=== PATIENT | female | born 1960 ===

== ENCOUNTER 2022-10-10 08:00 | Outpatient (AMB) | payer BC, SELFPAY ==
--- NOTE | 2022-10-10 08:03 | MHC.OFFVIS ---
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 It started about 6 months ago and was infrequent initially. Now it is more frequent and it usually when she is using her hand like typing.when she puts her hand down it improves. no numbness or weakness. No neck pain No weakness. she also has sleep problems when she was working 5am . Now it is better with regular work hours. [facility] Medical History (Updated 10/10/22 @ 08:40 by Haydee Maza MD) Anxiety Aortic stenosis HTN (hypertension) Paresthesia Sleep disorder Vitamin D deficiency Surgical History History of endometrial ablation Family History (Updated 10/10/22 @ 08:08 by Miranda Burt CMA) Mother Uterine cancer Breast cancer Father Myocardial infarction Family/Other H/O liver cancer Social History Alcohol intake: current Patient Tobacco Use Status: Never used Tobacco Review of Systems Const Reports daytime sleepiness, Reports difficulty sleeping and Reports snoring Eyes Reports blurry vision Resp Reports snoring Musc Reports numbness Neuro Reports numbness and Reports paresthesias Psych Reports anxiety Physical Exam Vital Signs: Last Vital Signs Pulse 69 10/10/22 08:08 BP 138/78 10/10/22 08:08 Pulse Ox 99 10/10/22 08:08 Oxygen Delivery Method Room Air 10/10/22 08:08 BMI result Body Mass Index 32.7 Const General: cooperative, healthy appearing, comfortable and no acute distress Nutritional Appearance: overweight Orientation/consciousness: patient oriented x3 Eyes Pupils: Equal, round and reactive pupils present Neuro Other: tingling in her right fingertips and hand when she raises her hand above shoulders, resolves when she brings it down General: patient oriented x3, tone normal and moves all extremities Cranial nerves: Yes Facial sensation intact/muscles of mastication intact, Yes Equal, round and reactive pupils present, Yes Bilaterally intact EOM present, Yes Nystagmus not present, Yes Normal facial strength present, Yes Midline tongue present and Yes Symmetric palate elevation present Cognition (Neuro): normal cognition Gait exam (Neuro): Normal gait present Motor exam (neuro): 5/5 motor strength present throughout and Normal motor muscle tone present throughout Deep tendon reflexes (DTR's): Right triceps reflex intensity grade: 2+, Left triceps reflex intensity grade: 2+, Rt Biceps (C5, C6): 2+, Left biceps reflex intensity grade: 2+, Right brachioradialis reflex intensity grade: 2+, Left brachioradialis reflex intensity grade: 2+, Right patellar reflex intensity grade: 2+ and Left patellar reflex intensity grade: 2+ Coordination: [id number] test normal Assessment & Plan Assessment & Plan (1) Paresthesia: Comment: ? carpal tunnel ? neurogenic thoracic outlet Code(s): R20.2 - Paresthesia of skin (2) Sleep disorder: Comment: snoring frequent arousals Code(s): G47.9 - Sleep disorder, unspecified Plan EMG NCS right UE Wrist splint PT for right shoulder Home sleep test to r/o sleep apnea Orders: Orders PT Evaluation and Treatment Today R20.2 - Paresthesia of skin RT home sleep study Today G47.10 - Hypersomnia, unspecified, G47.9 - Sleep disorder, unspecified NE electromyogram (EMG) Today R20.2 - Paresthesia of skin Medications: New [wrist brace] As directed 1 ea 0RF Coding Level of Care Code New Pt Level 4 (79286) Diagnoses Paresthesia R20.2 Sleep disorder G47.9
[2022-10-10 08:08] VITALS: BP 138/78; PULSE 69; O2SAT 99; BMI 32.7
== END 2022-10-10 08:35 | disposition home or self-care (01) ==
PROVIDERS: PCP Internal Medicine; Visit Provider Psychiatry & Neurology Neurology
DX: R20.2 Paresthesia of skin (principal); G47.9 Sleep disorder, unspecified
CPT/HCPCS: 99204

== ENCOUNTER → 2022-10-10 08:00 | Outpatient (BNVA) | payer BC, SELFPAY | PROVIDERS: PCP Internal Medicine; Visit Provider Psychiatry & Neurology Neurology ==

== ENCOUNTER 2022-11-25 09:16 | Outpatient (REF) | payer BC, SELFPAY ==
--- NOTE | 2022-11-25 09:19 | EMG_ITS ---
Chief complaint: Bilateral hand numbness Reason for referral: Evaluate for Carpal Tunnel Syndrome Referred by: Dr. Maza Procedure done: Bilateral upper extremities NCS/EMG Precautions and/or limitations: None The limb temperature was monitored continuously and remained between 32-36 degrees C during the performance of the NCS. Nerve Conduction Studies Anti Sensory Summary Table ?Stim Site NR Onset (ms) Norm Onset (ms) Peak (ms) Norm Peak (ms) O-P Amp (?V) Norm O-P Amp Site1 Site2 Delta-0 (ms) Dist (cm) Josh (m/s) Norm Josh (m/s) Left Median Anti Sensory (2nd Digit) Wrist ? 3.1 4.1 <3.6 28.2 >10 Wrist 2nd Digit 3.1 14.0 45 Right Median Anti Sensory (2nd Digit) Wrist ? 3.8 4.8 <3.6 42.8 >10 Wrist 2nd Digit 3.8 14.0 37 Left Ulnar Anti Sensory (5th Digit) Wrist ? 2.8 3.7 <3.7 55.0 >15.0 Wrist 5th Digit 2.8 14.0 50 Right Ulnar Anti Sensory (5th Digit) Wrist ? 2.8 3.4 <3.7 46.7 >15.0 Wrist 5th Digit 2.8 14.0 50 Motor Summary Table ?Stim Site NR Onset (ms) Norm Onset (ms) O-P Amp (mV) Norm O-P Amp iAmp (mV) Amp (1st) (%) Site1 Site2 Delta-0 (ms) Dist (cm) Josh (m/s) Norm Josh (m/s) Left Median Motor (Abd Poll Brev) Wrist ? 4.3 <3.9 4.2 >4.5 5.2 100.0 Elbow Wrist 3.3 18.0 55 >45 Elbow ? 7.6 4.3 5.2 102.4 Right Median Motor (Abd Poll Brev) Wrist ? 4.9 <3.9 8.8 >4.5 9.7 100.0 Elbow Wrist 3.7 18.5 50 >45 Elbow ? 8.6 9.3 10.2 105.7 Left Ulnar Motor (Abd Dig Minimi) Wrist ? 2.9 <3.0 9.3 >5 11.0 100.0 B Elbow Wrist 3.0 17.0 57 >45 B Elbow ? 5.9 9.3 11.0 100.0 A Elbow B Elbow 1.4 10.0 71 >45 A Elbow ? 7.3 8.0 9.6 86.0 Right Ulnar Motor (Abd Dig Minimi) Wrist ? 3.0 <3.0 8.9 >5 10.5 100.0 B Elbow Wrist 2.9 17.5 60 >45 B Elbow ? 5.9 9.0 10.5 101.1 A Elbow B Elbow 1.2 10.0 83 >45 A Elbow ? 7.1 9.4 10.9 105.6 Comparison Summary Table ?Stim Site NR Peak (ms) Norm Peak (ms) P-T Amp (?V) Site1 Site2 Delta-P (ms) Norm Delta (ms) Left Median/Radial Dig I Comparison (Digit 1 - 10cm) Median ? 3.2 <2.9 55.8 Median Radial 0.7 Radial ? 2.5 <2.8 33.0 EMG ?Side Muscle Nerve Root Ins Act Fibs Psw Amp Dur Poly Recrt Int Pat Comment Right 1stDorInt Ulnar C8-T1 Nml Nml Nml Nml Nml 0 Nml Complete Right FlexCarRad Median C6-7 Nml Nml Nml Nml Nml 0 Nml Complete Right Biceps Musculocut C5-6 Nml Nml Nml Nml Nml 0 Nml Complete Right Triceps Radial C6-7-8 Nml Nml Nml Nml Nml 0 Nml Complete Right Deltoid Axillary C5-6 Nml Nml Nml Nml Nml 0 Nml Complete Left 1stDorInt Ulnar C8-T1 Nml Nml Nml Nml Nml 0 Nml Complete Left FlexCarRad Median C6-7 Nml Nml Nml Nml Nml 0 Nml Complete Left Biceps Musculocut C5-6 Nml Nml Nml Nml Nml 0 Nml Complete Left Triceps Radial C6-7-8 Nml Nml Nml Nml Nml 0 Nml Complete Left Deltoid Axillary C5-6 Nml Nml Nml Nml Nml 0 Nml Complete FINDINGS: Right median motor nerve showed prolonged distal latency, normal amplitude and normal conduction velocity. Left median motor nerve showed prolonged distal latency, small amplitude and normal conduction velocity. Bilateral median sensory nerves showed prolonged peak latency. Interlatency difference between left median and radial sensory nerves was prolonged. All other nerves tested were within normal. Concentric needle EMG was performed in selected muscles of the bilateral upper extremities. Study did not reveal signs of electric abnormalities as shown in the table below. IMPRESSION: 1. This is an abnormal study. 2. There is electrodiagnostic evidence for bilateral moderate-severe median neuropathy at the wrists, consistent with carpal tunnel syndrome. 3. There is no electrodiagnostic evidence for ulnar neuropathy, brachial plexopathy, or cervical radiculopathy. Thank you for your kind referral. Sonal Miranda MD, LACY Board Certified, [place] Board [employer] and Rehabilitation (ABPMR) Board Certified, [place] Board of Electrodiagnostic Medicine (ABEM) CODIN [id number] x 2 MTDD
== END 2022-11-25 09:17 | disposition home or self-care (01) ==
LOC: HO.NEURO 09:16
PROVIDERS: PCP Internal Medicine; Visit Provider Psychiatry & Neurology Neurology
DX: R20.2 Paresthesia of skin (principal)
CPT/HCPCS: 95886; 95911

== ENCOUNTER → 2022-11-25 09:19 | Outpatient (BNV) | payer BC, SELFPAY | PROVIDERS: PCP Internal Medicine; Visit Provider Physical Medicine & Rehabilitation | DX: G56.13 Other lesions of median nerve, bilateral upper limbs (principal); G56.03 Carpal tunnel syndrome, bilateral upper limbs | CPT/HCPCS: 95886; 95911 ==

== ENCOUNTER → 2022-12-12 09:03 | Outpatient (REF) | payer BC, SELFPAY | LOC: HO.SL 09:03 | PROVIDERS: PCP Internal Medicine; Visit Provider Psychiatry & Neurology Neurology | DX: G47.9 Sleep disorder, unspecified (principal); G47.10 Hypersomnia, unspecified; R68.3 Clubbing of fingers | CPT/HCPCS: 95806 ==

== ENCOUNTER → 2022-12-12 09:21 | Outpatient (BNV) | payer BC, SELFPAY | PROVIDERS: PCP Internal Medicine; Visit Provider Internal Medicine | DX: R06.83 Snoring (principal) | CPT/HCPCS: 95806 ==

== ENCOUNTER 2023-03-23 07:55 | Outpatient (AMB) | payer BC, SELFPAY ==
--- NOTE | 2023-03-23 07:46 | MHC.OFFVIS ---
Intake Vital Signs 03/23/23 07:47 Height 5 ft 1 in BP 128/78 Blood Pressure Location Rt brachial Position Sitting Pulse 63 Pulse Source Pulse Oximeter Pulse Oximetry (%) 98 Oxygen Delivery Method Room Air Intake Visit Reasons: 2m f/u Paresthesias - LVM Intake Note: im here for 2 month follow up. Allergies mayonnaise Allergy (Verified 03/23/23 07:46) swelling of tounge Medication List - Last Reconciled 03/23/23 by Haydee Maza MD amlodipine 2.5 mg PO DAILY spironolactone 50 mg PO DAILY [wrist brace As directed] HPI HPI Comments History of Present Illness Details 63y/o female comes for follow up. Her EMG was c/w bilateral severe median neuropathy ( carpal tunnel syndrome ) She could not do PT or use wrist splints consistently Her home sleep test was inconclusive. she has on and off numbness and tingling in both her hands R>L.. No neck pain No weakness. she also has sleep problems when she was working 5am . Now it is better with regular work hours. [facility] TO [facility] Medical History (Updated 03/23/23 @ 07:58 by Haydee Mzaa MD) Carpal tunnel syndrome on both sides Paresthesia Vitamin D deficiency Aortic stenosis Anxiety Sleep disorder HTN (hypertension) Surgical History History of endometrial ablation Family History Mother Uterine cancer Breast cancer Father Myocardial infarction Family/Other H/O liver cancer Social History Alcohol intake: current Patient Tobacco Use Status: Never used Tobacco Physical Exam Vital Signs: Last Vital Signs Pulse 63 03/23/23 07:47 BP 128/78 03/23/23 07:47 Pulse Ox 98 03/23/23 07:47 Oxygen Delivery Method Room Air 03/23/23 07:47 Const General: cooperative, healthy appearing, comfortable and no acute distress Nutritional Appearance: overweight Orientation/consciousness: patient oriented x3 Eyes Pupils: Equal, round and reactive pupils present Neuro Other: tingling in her right fingertips and hand when she raises her hand above shoulders, resolves when she brings it down General: patient oriented x3, tone normal and moves all extremities Cranial nerves: Yes Facial sensation intact/muscles of mastication intact, Yes Equal, round and reactive pupils present, Yes Bilaterally intact EOM present, Yes Nystagmus not present, Yes Normal facial strength present, Yes Midline tongue present and Yes Symmetric palate elevation present Cognition (Neuro): normal cognition Gait exam (Neuro): Normal gait present Motor exam (neuro): 5/5 motor strength present throughout and Normal motor muscle tone present throughout Deep tendon reflexes (DTR's): Right triceps reflex intensity grade: 2+, Left triceps reflex intensity grade: 2+, Rt Biceps (C5, C6): 2+, Left biceps reflex intensity grade: 2+, Right brachioradialis reflex intensity grade: 2+, Left brachioradialis reflex intensity grade: 2+, Right patellar reflex intensity grade: 2+ and Left patellar reflex intensity grade: 2+ Coordination: [id number] test normal Assessment & Plan Assessment & Plan (1) Carpal tunnel syndrome on both sides: Code(s): G56.03 - Carpal tunnel syndrome, bilateral upper limbs Plan EMG NCS - results discussed Use Wrist splint I will refer her to hand surgery for carpal tunnel release . Home sleep test results discussed. If her sleep complaints worsen will consider in lab sleep study Orders: Referrals Hand Surgery Referral G56.03 - Carpal tunnel syndrome, bilateral upper limbs Coding Level of Care Code Est Pt Level 4 (28447) Diagnoses Carpal tunnel syndrome on both sides G56.03
[2023-03-23 07:47] VITALS: BP 128/78; PULSE 63; O2SAT 98
== END 2023-03-23 08:03 | disposition home or self-care (01) ==
LOC: HO.HSMS 07:55
PROVIDERS: PCP Internal Medicine; Visit Provider Psychiatry & Neurology Neurology
DX: G56.03 Carpal tunnel syndrome, bilateral upper limbs (principal)
CPT/HCPCS: 99214

== ENCOUNTER → 2023-03-23 07:55 | Outpatient (BNVA) | payer BC, SELFPAY | PROVIDERS: PCP Internal Medicine; Visit Provider Psychiatry & Neurology Neurology | DX: R20.2 Paresthesia of skin (principal) ==

== ENCOUNTER 2024-07-23 14:14 | Outpatient (AMB) | payer OTHER, SELFPAY ==
--- NOTE | 2024-07-23 14:19 | MHC.OFFVIS ---
Vital Signs 07/23/24 14:21 Weight 154 lb BP 150/80 H Blood Pressure Location Rt brachial Pulse 68 Pulse Source Pulse Oximeter Pulse Oximetry (%) 97 Oxygen Delivery Method Room Air Intake Visit Reasons: Follow up Procedures Nurse Required: No Accompanied by: Self / Same As Patient Allergies mayonnaise Allergy (Verified 07/23/24 14:22) swelling of tounge Medication List - Last Reconciled 07/23/24 by NARCISA Dey amlodipine 2.5 mg PO DAILY spironolactone 50 mg PO DAILY [wrist brace As directed] HPI Comments Details: 64 y/o female comes for follow up of bilateral carpal tunnel syndrome and sleep difficulties. Since the last visit, pt underwent Christian carpal tunnel repair in June [address] Jacobs at [facility]. She does not feel the carpal tunnel repair was helpful. Continues to have Christian R > L hand numbness, tingling, discomfort- less so than before the CTR but persists. She also notices right 4th finger- becomes stuck, prone to popping and discomfort when she forces it to extend. Denies neck, shoulder, or elbow pain. She did do hand PT x's 1 month and then consistently did the exercises 2 months. Uses wrist splints at times when the pain is worse. Does not take any meds for this. 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 11/25/2022, EMG was c/w bilateral severe median neuropathy ( carpal tunnel syndrome ) Previous home sleep test was inconclusive. [facility] Medical History (Updated 03/23/23 @ 07:58 by Haydee Maza MD) Carpal tunnel syndrome on both sides Paresthesia Vitamin D deficiency Aortic stenosis Anxiety Sleep disorder HTN (hypertension) Surgical History History of endometrial ablation Family History Mother Uterine cancer Breast cancer Father Myocardial infarction Family/Other H/O liver cancer Social History Alcohol intake: current Patient Tobacco Use Status: Never used Tobacco Physical Exam Vital Signs: Last Vital Signs Pulse 68 07/23/24 14:21 BP 150/80 H 07/23/24 14:21 Pulse Ox 97 07/23/24 14:21 Oxygen Delivery Method Room Air 07/23/24 14:21 Const General: cooperative, healthy appearing, comfortable and no acute distress Nutritional Appearance: overweight Orientation/consciousness: patient oriented x3 Eyes Pupils: Equal, round and reactive pupils present Neuro Other: RUE negative tinnel, phalen, medial compression test. LUE positive phalen- discomfort elicited along ulnar distribution. LUE negative tinnel, medial compression test. General: patient oriented x3, tone normal and moves all extremities Cranial nerves: Yes Facial sensation intact/muscles of mastication intact, Yes Equal, round and reactive pupils present, Yes Bilaterally intact EOM present, Yes Nystagmus not present, Yes Normal facial strength present, Yes Midline tongue present and Yes Symmetric palate elevation present Cognition (Neuro): normal cognition Gait exam (Neuro): Normal gait present Motor exam (neuro): 5/5 motor strength present throughout and Normal motor muscle tone present throughout Deep tendon reflexes (DTR's): Right triceps reflex intensity grade: 2+, Left triceps reflex intensity grade: 2+, Rt Biceps (C5, C6): 2+, Left biceps reflex intensity grade: 2+, Right brachioradialis reflex intensity grade: 2+, Left brachioradialis reflex intensity grade: 2+, Right patellar reflex intensity grade: 1+ and Left patellar reflex intensity grade: 1+ Assessment & Plan Assessment & Plan (1) Carpal tunnel syndrome on both sides: Code(s): G56.03 - Carpal tunnel syndrome, bilateral upper limbs Category: Medical Plan Pt is s/p bilateral carpal tunnel repair. Her symptoms have improved, but continues to residual symptoms. Try to use Wrist splint nightly at bedtime more consistently. Trial OTC Nervive nerve relief- advised usually takes 6-8 weeks to see full effect. If above ineffective, consider referral to OT/hand clinic. If right 4th finger locking worsens, consider referral back to Dr Reynaldo dorado. Home sleep test was inconclusive. If her sleep complaints worsen will consider in lab sleep study. Pt to follow-up in 6 months or sooner prn. Coding Level of Care Code Est Pt Level 3 (17351) Diagnoses Carpal tunnel syndrome on both sides G56.03
[2024-07-23 14:21] VITALS: BP 150/80; PULSE 68; O2SAT 97
--- OUTSIDE RECORDS SUMMARY | 2024-07-23 15:35 | XMS_ITS | Clinical Summary ---
Author Organization [facility] [address] [facility] [address] Address [address] [place] [address] Phone Care Team Providers Care Will Call Clerk Name Role Phone Angle Cochran MD Primary Care Provider Allergies No known active allergies Medications cholecalciferol (VITAMIN D-3) 50 mcg (2,000 unit) capsule Take by mouth. 4 Active spironolactone (ALDACTONE) 50 mg tabletIndications :Essential (primary) hypertension Take 1 tablet (50 mg total) by mouth 1 (one) time each day. 90 tablet 5 Active amLODIPine (NORVASC) 2.5 mg tabletIndications :Essential (primary) hypertension Take 1 tablet (2.5 mg total) by mouth 1 (one) time each day. 90 tablet 5 Active spironolactone (ALDACTONE) 50 mg tabletIndications :Essential (primary) hypertension TAKE 1 TABLET BY MOUTH EVERY DAY 90 tablet 5 07/06/19 25 Discontinu ed(Reorder ) amLODIPine (NORVASC) 2.5 mg tabletIndications :Essential (primary) hypertension TAKE 1 TABLET BY MOUTH EVERY DAY 90 tablet 5 07/06/19 25 Discontinu ed(Reorder ) Active Problems Problem Noted Date Diagnosed Date Hirsutism 07/31/2017 Anxiety 07/04/2016 Aortic stenosis 07/04/2016 Overview (12/19/2023): Echo 01/10/2019 Vitamin D deficiency 07/04/2016 Essential hypertension 06/14/2016 Overview (12/19/2023): Ascvd 4.3% Encounters Date Type Department Care Team Description 07/02/2024 10:03 AM EDT - 07/02/2024 11:59 PM EDT Hospital Encounter [facility] MRI [address] [place] [address] Dense breast tissue; FHx: malignant neoplasm of breast in first degree relative Discharge Disposition: Home or Self Care 06/03/2024 Telephone Adult Medicine - [place] [address] [place] [address] Angle Cochran MD Imaging Follow-up; Pro[employer]To[employer] Message from Last 3 Months Immunizations Name Administration Dates Next Due Influenza Quadravalent, MDCK , 0.5ml, preservative free (Flucelvax) 6mo and older 01/23/2023,11/29/2021,03/27/2020 Influenza trivalent, MDCK, 0 .5mL, preservative free (Flucelvax) 6mo and older 01/25/2024 Influenza trivalent, with preservative (Fluzone; Afluria) 6mo and older 11/22/2020,11/04/2020,03/31/2020,2018 Moderna SARS-CoV-2 COVID-19, mRNA, LNP-S, preservative free 07/02/2020 Tdap Tetanus diptheria acell ular pertussis (Boostrix; Adacel) 7yo and older 09/07/2016 Varicella live (Varivax) 12m o and older 03/21/2018 Surgical History Surgery Date Site/Laterality Comments ENDOMETRIAL ABLATION PROCEDURE: LA ENDOMETRIAL ABLTJ THERMAL W/O HYSTEROSCOPIC GUID; COMMENT: for menorrhagia CARPAL TUNNEL RELEASE 07/03/2023 Bilateral PROCEDURE: HISTORICAL CARPAL TUNNEL REL; COMMENT: at [facility] Medical History Medical History Date Comments Essential hypertension 06/14/2016 DX:Essent ial hypertension Vitamin D deficiency 07/04/2016 DX:Vitamin D deficiency Anxiety 07/04/2016 DX:Anxiety History of insomnia 07/04/2016 DX:History o f insomnia Aortic stenosis DX:Aortic stenos is Family History Medical History Relation Name Comments Other cancer Brother tumors in the b ack Heart attack Father at 48 Breast cancer Mother 71 Uterine cancer Mother 71 HTN Breast cancer Mother's side 3 mat cousins Other: uterine cancer Other 1 dm, di ed of sepsis following surgery Breast cancer Other 2 mat aunt 71 Relation Name Status Comments Brother Father Mother 71 Mother's side 3 mat cousins Alive 3 maternal co usins with breast cancer Other 1 Other 2 mat aunt 71 Dementia Social History Tobacco Use Types Packs/Day Years Used Date Smoking Tobacco: Never Smokeless Tobacco: Never Tobacco Cessation:Counseling Given: Not Answered Alcohol Use Standard Drinks/Week Comments Yes 0 (1 standard drink = 0.6 oz pur e alcohol) Comments No Sex and Gender Information Value Date Recorded Sex Assigned at Not on file Legal Sex Female 4:06 AM EST Gender Identity Not on file Sexual Orientation Not on file Obstetrics History Para Term AB IAB SAB Ectopic Multiple Livin g Live Births 1 1 1 1 Date Outcome GA Total Labor Labor/2nd/3rd Weight Sex Type Anes PTL Marisol A1 A5 Name Clin Term Last Filed Vital Signs Vital Sign Reading Time Taken Comments Blood Pressure 110/60 01/25/2024 11:39 AM EST Pulse 86 01/25/2024 11:39 AM EST Temperature 36.2 ??C (97.1 ??F) 01/25/2024 11:[address] Respiratory Rate - - Oxygen Saturation - - Inhaled Oxygen Concentration - - Weight 74.7 kg (164 lb 9.6 oz) 07/24/2023 8:29 A M EDT Height 152.4 cm (5') 07/24/2023 8:29 AM EDT Body Mass Index 32.15 07/24/2023 8:29 AM EDT Plan of Treatment Upcoming Encounters Date Type Department Care Team (Late st Contact Info) Description 07/25/2024 8:30 AM EDT Office Visit Adult Medicine [facility] [address] [place] [address] Francis Marques PA [address] [place] [address] Health Maintenance Due Date Last Done Comments Cervical Cancer Screening: Pap Smear 05/03/2010 05/03/2007 Pneumococcal Vaccine: 50+ Years (1 of 1 - PCV) 02/24/2012 Zoster Vaccines (1 of 2) 05/16/2018 03/21/2018 HIV Screening 02/26/2022 Social Influencers of Health Screening 02/26/2022 COVID-19 Vaccine ( season) 2023 07/30/2020, 07/09/2020, 07/02/2020 Hypertension/CHF/CAD Annual BMP Blood Test 01/15/2025 01/16/2024, 01/23/2023 Depression Screening 01/24/2025 01/25/2024 Breast Cancer Screening 03/18/2026 03/18/20, 03/06/2023, 02/25/2022, Additional history exists Colorectal Cancer Screening: Colonoscopy 11/10/2026 11/10/2016 Cholesterol Screening (Lipid Panel) 01/15/2029 01/16/2024, 01/23/2023 DTaP,Tdap,and Td Vaccines (3 - Td or Tdap) 07/23/2031 07/22/2021, 09/07/2016 RSV Immunization Adult Patients (1 - 1-dose 75+ series) 2037 Hepatitis C Screening Completed 06/14/2016 Varicella Vaccines Aged Out 03/21/2018 No longer eligible based on patient's age to complete this topic Influenza Vaccine Completed 01/25/2024, , 11/29/2021, Additional history exists HIB Vaccines Aged Out No longer eligi ble based on patient's age to complete this topic HPV Vaccines Aged Out No longer eligi ble based on patient's age to complete this topic Hepatitis A Vaccines Aged Out No long er eligible based on patient's age to complete this topic Hepatitis B Vaccines Aged Out No long er eligible based on patient's age to complete this topic IPV Vaccines Aged Out No longer eligi ble based on patient's age to complete this topic MMR Vaccines Aged Out No longer eligi ble based on patient's age to complete this topic Meningococcal ACWY Vaccine Aged Out N o longer eligible based on patient's age to complete this topic Meningococcal B Vaccine Aged Out No l onger eligible based on patient's age to complete this topic Pneumococcal Vaccine: Pediatrics (0 to 5 Years) and At-Risk Patients (6 to 64 Years) Aged Out No longer eligible based on patient's age to complete this topic RSV Immunization Patients Under 20 months Aged Out No longer eligible based on patient's age to complete this topic Procedures Procedure Name Priority Date/Time Associated Diagnosis Comments MR BREAST WO AND W CONTRAST BILAT Routine 07/02/2024 11:22 AM EDT Dense breast tissue FHx: malignant neoplasm of breast in first degree relative MG MAMMO DIGITAL SCREENING W THAI BILAT Routine 03/18/2024 8:58 AM EST Encounter for screening mammogram for breast cancer ANNUAL BMP BLOOD TEST Routine 01/23/2023 LIPID PANEL Routine 01/23/2023 COLONOSCOPY Routine 11/10/2016 HEPATITIS C SCREENING Routine 06/14/2016 PAP SMEAR Routine 05/03/2007 from Last 3 Months or Most Recently Relevant to Health Maintenance Results * MR Breast wo and w Contrast bilat (07/02/2024 11:22 AM EDT) Anatomical Region Laterality Modality Breast Bilateral Magnetic Resonan ce 07/02/2024 2:48 PM EDT Impressions 07/04/2024 6:44 AM EDT No suspicious mass or enhancement. No suspicious interval change. T1 hyperintensity within some ducts behind the right nipple likely related to high protein material or blood products without suspicious enhancement. ?? ASSESSMENT: RIGHT BREAST: BI-RADS 2-benign LEFT BREAST: BI-RADS 2-benign RECOMMENDATIONS: Recommend annual high risk screening MRI. -------- FINAL REPORT -------- Dictated By: Natan Kim Dictated Date: 07/02/2024 14:48 ET Assigned Physician: Natan Kim Reviewed and Electronically Signed By: Natan Kim Signed Date: 07/04/2024 06:44 ET Workstation ID: [id number] Transcribed By: Self Edit Transcribed Date: 07/03/2024 06:49 ET Narrative 07/04/2024 6:44 AM EDT EXAMINATION: MRI BREAST WITHOUT AND WITH CONTRAST, BILATERAL CLINICAL INFORMATION: Iris screening. ??Family history of breast cancer. Mother with history of breast cancer. Dense breasts COMPARISON: Portions of a previous MRI 02/25/23, 05/11/20, 06/04/18 PREVIOUS MAMMOGRAPHY (Non-diagnostic monitor review): 03/18/24 TECHNIQUE: Anatomic and fluid sensitive MR sequences were performed on a 3 Sari platform system. ??Diffusion-weighted sequence was performed. A dynamic series was performed shortly before and after the IV administration of contrast. Subtracted imaging was reviewed. Color signal and kinetic analysis was performed on a dedicated software platform (Goalbook) Imaging before and after the IV administration of contrast. Type of contrast: Dotarem Amount of contrast: 20 mL Volume of contrast discarded: 0 mL FINDINGS: FIBROGLANDULAR SIGNAL: There are scattered areas of fibroglandular signal ?? BACKGROUND PARENCHYMAL ENHANCEMENT: ??There is a mild amount of background parenchymal enhancement SYMMETRY OF ENHANCEMENT: The background enhancement is symmetric ?? RIGHT BREAST: There are no suspicious right breast findings ?? Masses: There are no suspicious right breast masses. There is an unchanged 0.4 cm enhancing ??mass approximately 2.5 cm behind the right nipple (601/121). Nonmass enhancement: There are no suspicious areas of nonmass enhancement within the right breast ?? Enhancing foci: There are a few scattered stable nonspecific enhancing foci in the right breast. ?? Other: There are no suspicious additional findings in the right breast. There is T1 hyperintensity within ducts behind the right nipple which can be seen with proteinaceous material or blood products. There are a few small cysts. Color signal and enhancement kinetics: There are no suspicious areas of color signal. There are no areas of washout kinetics ?? LEFT BREAST: There are no suspicious left breast findings. ?? Masses: There are no suspicious left breast masses. ?? Nonmass enhancement: There are no suspicious areas of nonmass enhancement within the left breast. ??There are unchanged small areas of nonmass enhancement, the most conspicuous in the 12:00 position is unchanged (). Enhancing foci: There are no suspicious enhancing foci in the left breast ?? Other: There are no other suspicious left breast findings ?? Color signal and enhancement kinetics: There are no suspicious areas of color signal. There are no suspicious areas of washout kinetics ?? VISUALIZED CHEST: ?? AXILLA: There are no enlarged axillary lymph nodes ?? VISUALIZED ABDOMEN: There are no suspicious findings in the visualized portions of the chest. There are no suspicious findings in the visualized portions of the abdomen ?? Procedure Note Natan Kim MD - 07/04/2024 EXAMINATION: MRI BREAST WITHOUT AND WITH CONTRAST, BILATERAL CLINICAL INFORMATION: Iris screening. Family history of breast cancer. Mother with history ofbreast cancer. Dense breasts COMPARISON: Portions of a previous MRI 02/25/23, 05/11/20, 06/04/18 PREVIOUS MAMMOGRAPHY (Non-diagnostic monitor review): 03/18/24 TECHNIQUE: Anatomic and fluid sensitive MR sequences were performed on a 3 Teslaplatform system. Diffusion-weighted sequence was performed. A dynamicseries was performed shortly before and after the IV administration ofcontrast. Subtracted imaging was reviewed. Color signal and kinetic analysis was performed on a dedicated softwareplatform (Goalbook) Imaging before and after the IV administration of contrast. Type of contrast: Dotarem Amount of contrast: 20 mL Volume of contrast discarded: 0 mL FINDINGS: FIBROGLANDULAR SIGNAL: There are scattered areas of fibroglandular signal BACKGROUND PARENCHYMAL ENHANCEMENT: There is a mild amount of backgroundparenchymal enhancement SYMMETRY OF ENHANCEMENT: The background enhancement is symmetric RIGHT BREAST: There are no suspicious right breast findings Masses: There are no suspicious right breast masses. There is an unchanged0.4 cm enhancing mass approximately 2.5 cm behind the right nipple(601/121). Nonmass enhancement: There are no suspicious areas of nonmass enhancementwithin the right breast Enhancing foci: There are a few scattered stable nonspecific enhancingfoci in the right breast. Other: There are no suspicious additional findings in the right breast.There is T1 hyperintensity within ducts behind the right nipple which canbe seen with proteinaceous material or blood products. There are a fewsmall cysts. Color signal and enhancement kinetics: There are no suspicious areas ofcolor signal. There are no areas of washout kinetics LEFT BREAST: There are no suspicious left breast findings. Masses: There are no suspicious left breast masses. Nonmass enhancement: There are no suspicious areas of nonmass enhancementwithin the left breast. There are unchanged small areas of nonmassenhancement, the most conspicuous in the 12:00 position is unchanged (61/96). Enhancing foci: There are no suspicious enhancing foci in the left breast Other: There are no other suspicious left breast findings Color signal and enhancement kinetics: There are no suspicious areas ofcolor signal. There are no suspicious areas of washout kinetics VISUALIZED CHEST: AXILLA: There are no enlarged axillary lymph nodes VISUALIZED ABDOMEN: There are no suspicious findings in the visualizedportions of the chest. There are no suspicious findings in the visualizedportions of the abdomen IMPRESSION: No suspicious mass or enhancement. No suspicious interval change. T1 hyperintensity within some ducts behind the right nipple likely relatedto high protein material or blood products without suspicious enhancement. ASSESSMENT: RIGHT BREAST: BI-RADS 2-benign LEFT BREAST: BI-RADS 2-benign RECOMMENDATIONS: Recommend annual high risk screening MRI. -------- FINAL REPORT -------- Dictated By: Natan Kim Dictated Date: 07/02/2024 14:48 ET Assigned Physician: Natan Kim Reviewed and Electronically Signed By: Natan Kim Signed Date: 07/04/2024 06:44 ET Workstation ID: [id number] Transcribed By: Self Edit Transcribed Date: 07/03/2024 06:49 ET Angle Cochran MD IMG MRI PROCEDURES Fin al Result * MG Mammo Digital Screening w Thai bilat (03/18/2024 8:58 AM EST) Anatomical Region Laterality Modality Breast Bilateral Mammography 03/19/2024 3:50 PM EST Impressions 03/19/2024 3:50 PM EST No mammographic evidence of malignancy. BREAST DENSITY: B - There are scattered areas of fibroglandular density. BI-RADS CATEGORY: 1 - NEGATIVE RECOMMENDATION: Screening bilateral mammogram is recommended in 1 year. MAMMO LOCATION: [facility], [address] [place] [address], [id number], . -------- FINAL REPORT -------- Dictated By: Hanna Wiggins Dictated Date: 03/19/2024 15:50 ET Assigned Physician: Hanna Wiggins Reviewed and Electronically Signed By: Hanna Wiggins Signed Date: 03/19/2024 15:50 ET Workstation ID: [id number] Transcribed By: Self Edit Transcribed Date: 03/19/2024 15:50 ET Narrative 03/19/2024 3:50 PM EST EXAM: Screening Mammogram CLINICAL: 64 years old, Female, routine annual exam. COMPARISON: 03/06/2023 and as far back as 01/29/2020 ?? TECHNIQUE: Bilateral MLO and CC views were obtained digitally with 3-D mammogram (digital breast tomosynthesis). Computer-aided detection was utilized in evaluation of this exam (CAD). FINDINGS: No new suspicious mass, architectural distortion, or suspicious calcifications. Procedure Note Hanna Wiggins MD - 03/19/2024 EXAM: Screening Mammogram CLINICAL: 64 years old, Female, routine annual exam. COMPARISON: 03/06/2023 and as far back as 01/29/2020 TECHNIQUE: Bilateral MLO and CC views were obtained digitally with 3-Dmammogram (digital breast tomosynthesis). Computer-aided detection wasutilized in evaluation of this exam (CAD). FINDINGS: No new suspicious mass, architectural distortion, or suspiciouscalcifications. IMPRESSION: No mammographic evidence of malignancy. BREAST DENSITY: B - There are scattered areas of fibroglandular density. BI-RADS CATEGORY: 1 - NEGATIVE RECOMMENDATION: Screening bilateral mammogram is recommended in 1 year. MAMMO LOCATION: [facility], [address] [place] [address], [phone], . -------- FINAL REPORT -------- Dictated By: Hanna Wiggins Dictated Date: 03/19/2024 15:50 ET Assigned Physician: Hanna Wiggins Reviewed and Electronically Signed By: Hanna Wiggins Signed Date: 03/19/2024 15:50 ET Workstation ID: [id number] Transcribed By: Self Edit Transcribed Date: 03/19/2024 15:50 ET us Vivian Mayer MD IMG BI PROCEDURES Final Resu lt * Annual BMP Blood Test (01/23/2023) [facility] Annual BMP Blood Test Abstracted [facility] Provider HEALTH MAINTENANCE Final Result * (ABNORMAL) Lipid panel (01/23/2023) [facility] LDL/HDL Ratio 3 0 - 4 Triglycerides 62 0 - 150 mg/dL Cholesterol 210(A) 0 - 200 mg/dL HDL 72 >=40 mg/dL LDL Cholesterol 126(A) 0 - 100 mg/dL Blood Venous blood specimen / Unknown [facility] Provider LAB BLOOD ORDERABLES Domonique l Result * Colonoscopy (11/10/2016) [facility] Colonoscopy No interpretation , Abstracted Anatomical Region Laterality Modality Other [facility] Provider HEALTH MAINTENANCE Final Result * Hepatitis C Screening (06/14/2016) [facility] Hepatitis C Screening Abstracted [facility] Provider HEALTH MAINTENANCE Final Result * Pap Smear (05/03/2007) [facility] Pap smear No interpretation , Abstracted [facility] Provider HEALTH MAINTENANCE Final Result from Last 3 Months or Most Recently Relevant to Health Maintenance Insurance [id number] Care Teams Will Call Clerk Relationship Specialty Start Date End Date Angle Cochran MD [address] [place] [id number] PCP - General Internal Medicine 05/27/21
--- OUTSIDE RECORDS SUMMARY | 2024-07-23 15:36 | XMS_ITS | Data Portability ---
Author Organization [place] - [facility],, VIVIAN MAYER MD Address [address] [address] Care Team Providers Care Mud Analysis Supervisor Name Role Phone PRINCE SOLORIO Primary Care Provider [phone] Assessment No assessment recorded. Plan of Treatment Reminders Order Date Submit Date Provider Last Modified By Organization Details Last Modified Time Details Appointments ANNUAL EXAM 2024 08:20A M Vivian Mayer MD Not available Not available Not available Lab cytology report, thin prep, smear or scraping , cervical or vaginal 2023 024 REX [facility] (Centralized Electronic Ordering - All Locations), Patient Can Go To The Location Of Their Choice, [id number] 02/21/2024 16:21:58 hemoglob in, gastroin testinal , stool 2023 024 [email or web address] 1 In-Office Order, Internal Use Only DO Not Attach Compendium DO Not Attach Compendium, Do Not Delete/merge, [id number] 02/13/2024 08:20:09 biopsy, cervical 2023 024 [facility] (Centralized Electronic Ordering - All Locations), Patient Can Go To The Location Of Their Choice, [id number] 07/27/2023 07:12:52 pap, LB 2023 024 [facility], Cytopathology Service, [address] [facility], [place], [address], 06/08/2023 09:17:25 pap test, thinprep , cervical 2022 023 [email or web address] (Centralized Electronic Ordering - All Locations), Patient Can Go To The Location Of Their Choice, [id number] 02/22/2023 07:31:39 fecal occult blood, stool 2022 023 [email or web address] 1 In-Office Order, Internal Use Only DO Not Attach Compendium DO Not Attach Compendium, Do Not Delete/merge, [id number] 02/08/2023 08:17:47 pap test, thinprep , cervical 2021 [facility] (Centralized Electronic Ordering - All Locations), Patient Can Go To The Location Of Their Choice, [id number] 01/07/2022 07:39:50 estradio l, serum 2021 REX [facility] (Centralized Electronic Ordering - All Locations), Patient Can Go To The Location Of Their Choice, [id number] 12/31/2021 16:33:41 FSH (follicl e-stimul ating hormone) , serum 2021 REX [facility] (Centralized Electronic Ordering - All Locations), Patient Can Go To The Location Of Their Choice, [id number] 12/31/2021 16:33:43 fecal occult blood, stool 2021 REX In-Office Order, Internal Use Only DO Not Attach Compendium DO Not Attach Compendium, Do Not Delete/merge, [id number] 12/31/2021 09:32:37 TSH, serum or plasma 2021 REX [facility] (Centralized Electronic Ordering - All Locations), Patient Can Go To The Location Of Their Choice, [id number] 12/31/2021 16:33:44 Referral breast surgery referral - Adriana Watson risk of developm ent of breast cancer is 27.2%, for inclyolandao n in your high risk program. she is getting annual MRI. Breast cancer in mother, maternal aunt, 3 maternal cousins, age 43, 45, 48, 79, 79 2021 [email or web address] [facility], [address], [place], [address], 09/08/2023 08:05:04 Procedures colposco py with biopsy and endocerv ical curettag e (PROC) 2023 024 jo In-Office Order, Internal Use Only DO Not Attach Compendium DO Not Attach Compendium, Do Not Delete/merge, [id number] 07/03/2023 15:06:00 Surgeries None recorded . Imaging MAMMO, screenin g, digital, bilatera l - Breast Aspirati on and/or Biopsy if needed 2023 024 [facility] ([place] [facility]), [address] [place], [address], 03/19/2024 16:05:58 MRI, breast, bilatera l, w/wo contrast - She has a strong family history of early age onset breast cancer on her mother's side, she is BRCA negative , is getting annual MRI and mammo, Her Tyrer-Cu zick is 27.2%. [address] [facility], [address] [place] [address], [address], 03/03/2023 14:15:20 MAMMO, screenin g, digital, bilatera l - Breast Aspirati on and/or Biopsy if needed 2022 023 [facility] ([facility]), [address] [place], [address], 03/06/2023 09:37:30 MAMMO, screenin g, digital, bilatera l 2021 022 [facility] ([place]), [address] [place], [address], 02/25/2022 19:58:00 Medication Orders None recorded . Patient TargetsNo targets recorded. Patient Instructions Encounter Date Encounter Id Patient Instructions Last Modified By Organization Details Last Modified Time 12/31/2021 [id number] learning about healthy weight Not available 12/31/2021 09:15:13 secondary amenorrhea: care instructions Not available 12/31/2021 09:19:12 She is here for annual exam, notes recent increase in anxiety nad hot flashes, would like testing to see if menopause related. She has not had a menses in at least 6 years, she had an endometrial ablation in 2006 as well. Mariah has a strong family history of early age onset breast cancer on her mother's side, she is BRCA negative, is getting annual MRI and mammo, wishes referral to a high risk program. Her T-K is 27.2%. Note from 2020: She is here for annual exam, doing well, no significant vasomotor symptoms. She has a Tyrer-Cuzik of 27.2%, gets annual mammogram and also annual bilateral breast MRI. She is MyRisk negative. She may consider HRT to see if it helpps her anxiety, she will call for telehealth after labs are back. She appears to be doing well. check labs for fatigue and recent menopause issues. Refer to breast care center. Monthly self breast exam was taught, and stressed, and is advised to call if she discovers any new mass in the breast. [email or web address] Not available 12/31/2021 09:30:14 02/08/2023 [id number] learning about healthy weight Not available 02/08/2023 08:02:28 she is here for annual, doing well, no significant vasomotor symptoms. Is due for MRI of breast for screening, has a Tyrer-Cuzik of 27.2%, and a strong family history. Is BRCA neg. Has a bone density already ordered by PCP. __ Note from 2021: She is here for annual exam, notes recent increase in anxiety nad hot flashes, would like testing to see if menopause related. She has not had a menses in at least 6 years, she had an endometrial ablation in 2006 as well. Mariah has a strong family history of early age onset breast cancer on her mother's side, she is BRCA negative, is getting annual MRI and mammo, wishes referral to a high risk program. Her T-K is 27.2%. She appears to be doing well. Monthly self breast exam was taught, and stressed, and is advised to call if she discovers any new mass in the breast. lashell Not available 02/08/2023 08:17:32 05/22/2023 [id number] abnormal Pap kristin t: care instructions lashell Not available 05/22/2023 09:54:15 She is here for repeat pap after pap with ASCUS with negative HR HPV. Pap taken. If negative then resume annual paps, if ASCUS then colpo, this was discussed. lashell Not available 05/22/2023 09:54:43 07/03/2023 [id number] colposcopy: what to expect at home lashell Not available 07/03/2023 14:44:10 human papillomavirus (HPV): care instructions lashell Not available 07/03/2023 14:44:10 She is her for colpo for 2 consecutive paps with ASCUS negative HR HPV. She had biopsy proven LSIL in 2020. She tolerated procedure well, await biopsies. Post procedure care discussed. lashell Not available 07/03/2023 14:45:46 02/13/2024 [id number] learning about healthy weight lashell Not available 02/13/2024 08:20:09 She is here for annual, doing well, no vasomotor symptoms. Will put off her MRI of breasts until after her new insurance starts in March, she will call us for the order, her T-K is 27.2%. Note from 2022: she is here for annual, doing well, no significant vasomotor symptoms. Is due for MRI of breast for screening, has a Tyrer-Cuzik of 27.2%, and a strong family history. Is BRCA neg. Has a bone density already ordered by PCP. She appears to be doing well. Monthly self breast exam was taught, and stressed, and is advised to call if she discovers any new mass in the breast. lashell Not available 02/13/2024 08:20:31 Reason for Referral Breast Surgery Referral for At increased risk of malignant neoplasm of breast Adriana Watson risk of development of breast cancer is 27.2%, for inclusion in your high risk program. she is getting annual MRI. Breast cancer in mother, maternal aunt, 3 maternal cousins, age 43, 45, 48, 79, 79 Referring Physician: Vivian Mayer, Gynecology, Encounter Date: 12/31/2021 Results Created Date Observation Date Name Description Value Unit Range Abnormal Flag Note LastModifiedBy Organization Detail LastModifiedTime 01/01/2012/31/2021 ESTRA DIOL estradiol 25 pg/mL Refer ence Range s: Lutea l Phase : 44-21 1 pg/mL Ovula tion: 86-49 8 pg/mL Folli cular Phase : 13-16 6 pg/mL Postm enopa usal: <55 pg/mL Estra diol test metho d is an elect brigid milum inesc ence immun oassa y manuf actur ed by [employer] and perfo rmed on the Modul ar or Evens syste m. This assay has cross react ivity to the drug fulve stran t which may lead to false ly eleva vignesh estra diol resul ts. There fore, an alter lisa metho d such as liqui d chrom atogr aphy- tande m mass spect romet ry shoul d be used when monit oring estra diol level s in patie nts being treat ed with the drug fulve stran t. Not Available [facility] (Centralized Electronic Ordering - All Locations) Patient Can Go To The Location Of Their Choice, [id number] 12/31/2021 16:33:41 01/01/2012/31/2021 FSH FSH 42.3 mIU/m L Refer ence Range : Folli cular : 3.5-1 2.5 mIU/m L Ovula tion: 4.7-2 1.5 mIU/m L Lutea l: 1.7-7 .7 mIU/m L Postm enopa usal: 25.8- 134.8 mIU/m L Not Available [facility] (Centralized Electronic Ordering - All Locations) Patient Can Go To The Location Of Their Choice, [id number] 12/31/2021 16:33:43 01/01/2012/31/2021 TSH TSH 0.59 uIU/m L (0.4-4 .2) Not Available [facility] (Centralized Electronic Ordering - All Locations) Patient Can Go To The Location Of Their Choice, [id number] 12/31/2021 16:33:44 01/01/20 22 12/31/2021 [facility] results Patirocio nt Name: IMAN DONALDSON nt : 1959 (Age: 61) Lab Acces suzi #: [id number] Colle ction Date: 12/31 Acces suzi Date: 12/31 Sign Out Date: 01/06 Tissu rocio Shipley e: 1: THINP REP CHILD CARE SITTER PAP TEST, CERVI MARILUZ: Final Diagn osis: NEGAT DIANA FOR INTRA EPITH ELIAL LESIO N OR MALIG PATRICK . Satis facto ry for evalu ation . Endoc ervic al/tr ansfo rmati on zone prese nt. Clini mariluz Histo ry: Date of Last Menst rual Perio d: not avail able Menst rual Histo ry: Post- menop ausal Contr acept diana Histo ry: not avail able Ancil brent Testi ng: HPV (ASCU S) Case image d by the ThinP rep Imagi ng Syste m with kody thomas or maria del carmen to. Perfo rmed at [facility] ate Refer ence Labor atory depar tment of Cytol ogy, [address] [place] Clini mariluz Histo ry (othe r): Z01.4 19, ASCUS (-) HPV, routi ne scree n Phone #: [phone], On-Ca ll Patho logis t: [id number] Not Available [facility] (Centralized Electronic Ordering - All Locations) Patient Can Go To The Location Of Their Choice, [id number] 01/06/2022 10:41:25 01/01/2012/31/2021 fecal occul t blood , stool Occult Blood negati ve Not Available In-Office Order Internal Use Only DO Not Attach Compendium DO Not Attach Compendium, Do Not Delete/merge, [id number] 12/31/2021 08:59:06 02/09/20 23 02/08/2023 [facility] results abnormal Patie nt Name: IMAN DONALDSON nt : 1959 (Age: 62) Lab Acces suzi #: [id number] Colle ction Date: 02/08 Acces suzi Date: 02/08 Sign Out Date: 02/16 Tissu e Sourc e: 1: THINP REP CHILD CARE SITTER PAP TEST, CERVI MARILUZ: Final Diagn osis: ATYPI MARILUZ SQUAM OUS CELLS OF UNDET ERMIN ED SIGNI FICAN CE. Satis facto ry for evalu ation . Endoc ervic al/tr ansfo rmati on zone prese nt. Proce dures /Adde nda: Human Papil amber Virus , High- Risk (Any Dx) Statu s: Henny d Out Inter preta tion: Negat diana Metho dolog y: Holog ic Aptim a HPV mRNA assay (Nucl eic Acid Ampli ficat ion Test, NAAT) . Clini mariluz Histo ry: Date of Last Menst rual Perio d: not avail able Menst rual Histo ry: Post- menop ausal Contr acept diana Histo ry: not avail able Ancil brent Testi ng: HPV (ASCU S) Case image d by the ThinP rep Imagi ng Syste m with kody leer phil thomas or maria del carmen ridley Perfo rmed at [facility] ate Refer ence Labor atory depar tment of Cytol ogy, [address] [place] Clini mariluz Histo ry (othe r): Z01.4 19, routi ne scree n, LPS 12/31 neg Prima ry Patho logis t: LEATHA SANDERS M.D. Phone #: [phone], On-Ca Patho logis t: [id number] Not Available [facility] (Centralized Electronic Ordering - All Locations) Patient Can Go To The Location Of Their Choice, [id number] 02/17/2023 17:31:39 02/09/20 23 02/08/2023 fecal occul t blood , stool Occult Blood negati ve Not Available In-Office Order Internal Use Only DO Not Attach Compendium DO Not Attach Compendium, Do Not Delete/merge, [id number] 02/08/2023 07:52:45 05/22/19 24 05/22/2023 [facility] CYTOL OGY results abnormal Patie nt Name: IMAN DONALDSON nt : 1959 (Age: 63) Lab Acces suzi #: [id number] Colle ction Date: Acces suzi Date: Sign Out Date: Tissu e Sourc e: 1: THINP REP CHILD CARE SITTER PAP TEST, CERVI MARILUZ: Final Diagn osis: ATYPI MARILUZ SQUAM OUS CELLS OF UNDET ERMIN ED SIGNI FICAN CE. Satis facto ry for evalu ation . Endoc ervic al/tr ansfo rmati on zone prese nt. Proce dures /Adde nda: Human Papil amber Virus , High- Risk (Any Dx) Statu s: Henny d Out Inter preta tion: Human Papil amber Virus , High- Risk: NEGAT DIANA Metho dolog y: Holog ic Aptim a HPV mRNA assay (Nucl eic Acid Ampli ficat ion Test, NAAT) . Clini mariluz Histo ry: Date of Last Menst rual Perio d: not avail able Menst rual Histo ry: not avail able Contr acept diana Histo ry: not avail able Ancil brent Testi ng: HPV (ASCU S) Case image d by the ThinP rep Imagi ng Syste m with kody thomas or maria del carmen ridley Perfelliot rmed at [facility] ate Refer ence Labor atory depar tment of Cytol ogy, [address] [place] Clini mariluz Histo ry (othe r): r87.6 10, diagn ostic scree n, lps 02-08 ascus neg hpv Prima ry Patho logis t: Q Quyen Jensen M.D. Phone #: [phone], On-Ca ll Patho logis t: [id number] Not Available [facility] (Centralized Electronic Ordering - All Locations) Patient Can Go To The Location Of Their Choice, [id number] 06/12/2023 09:46:59 07/03/1907/03/2023 [facility] SURGI MARILUZ PATHO LOGY results Ame jacques Name: IMAN DONALDSON Acces suzi #: [id number] Ame nt : 1959 (Age: 63) Colle ction Date: 2023 Acces suzi Date: 2023 Sign Out Date: 2023 Tissu e Sourc e: 1:CXB X Final Diagn osis: Cervi x, biops y: - Trans forma tion zone mucos a; negat diana for squam ous intra epith elial lesio n. Prima ry Patho logis t:Faizan Leavitt M.D. elect nilam wells henny d out by: Del Leavitt M.D. / [facility] Clini mariluz Histo ry: 63-ye ar-ol d femal e, LGSIL Gross Descr iptio n: Label ed cerv ix biops y . Recei jamel in forma patricia are 2 soft christine tissu e fragm ents each measu ring 0.5 x 0.4 x 0.3 cm. Attac hed to each fragm ent is cloud y mucus . The tissu e is submi tted in toto in 1 casse tte, 2 piece s, x 2. (KD)* As of May 27, 2023, the speci men proce ssing and stain ing [facility] [place] [facility] , [address], [place] [address] (CLIA #[id number]). Its perfo rmanc e haydee cteri stics are deter mined by [employer] . Phone #: [phone], On-Ca ll Patho logis t: [id number] Not Available [facility] (Centralized Electronic Ordering - All Locations) Patient Can Go To The Location Of Their Choice, [id number] 07/11/2023 14:27:39 02/13/20 24 02/21/2024 IGP, RFX APTIM A HPV ASCU diagnosis: Dae t NEGAT DIANA FOR INTRA EPITH ELIAL LESIO N OR MALIG PATRICK . Not Available [facility] ([facility]) [address] [place], [address], 02/21/2024 16:21:58 02/13/20 24 02/21/2024 IGP, RFX APTIM A HPV ASCU specimen adequacy: Dae t Satis facto ry for evalu ation . Not Available [facility] ([facility]) [address] [place], [address], 02/21/2024 16:21:58 02/13/20 24 02/21/2024 IGP, RFX APTIM A HPV ASCU clinician provided ICD10: Dae peter Z01.4 19 Not Available [facility] ([facility]) [address] [place], [address], 02/21/2024 16:21:58 02/13/20 24 02/21/2024 IGP, RFX APTIM A HPV ASCU performed by: Dae t Abigail Ann (ASCP ) Not Available [facility] ([facility]) [address] [place], [address], 02/21/2024 16:21:58 02/13/20 24 02/21/2024 IGP, RFX APTIM A HPV ASCU . . Not Available [facility] ([facility]) [address] [place], [address], 02/21/2024 16:21:58 02/13/20 24 02/21/2024 IGP, RFX APTIM A HPV ASCU note: Dae t The Pap smear is a scree home test desig jorge alberto to aid in the detec tion of abilio ligna nt and malig nant condi tions of the uteri ne cervi x. It is not a diagn ostic proce dure and shoul d not be used as the sole means of detec ting cervi mariluz cance r. Both false -posi tive and false -nega tive repor ts do occur . Not Available [facility] ([facility]) [address] [facility], [place], [address], 02/21/2024 16:21:58 02/13/20 24 02/21/2024 IGP, RFX APTIM A HPV ASCU test methodology: Commen t This liqui d based ThinP rep(R ) pap test was torie azul with the use of an image guide jeremy systrocio m. Not Available [facility] ([facility]) [address] [facility], [place], [address], 02/21/2024 16:21:58 02/13/20 24 02/21/2024 IGP, RFX APTIM A HPV ASCU . Commen t The HPV DNA refle x crite ting were not met with this speci men resul t there fore, no HPV testi ng was perfo rmed. Not Available [facility] ([facility]) [address] [facility], [place], [address], 02/21/2024 16:21:58 02/13/20 24 02/13/2024 hemog lobin , gastr ointe raoul l, stool Occult Blood negati ve Not Available In-Office Order Internal Use Only DO Not Attach Compendium DO Not Attach Compendium, Do Not Delete/merge, [id number] 02/13/2024 08:00:39 02/26/20 22 02/25/2022 MAMMO , screrocio bhat, digit al, martín garcia No observ ation record ed. Not Available 02/17 18:50:04 03/03/20 23 02/24/2023 MRI, martín tapia, w/wo contr ast No observ ation record ed. [facility] [address] [place] [address], [place], [address], 03/03/2023 15:22:04 03/06/20 23 03/06/2023 MAMMO , scree home, digit al, bilat eral No observ ation record ed. [facility] [address] [place], [address], 03/06/2023 10:31:03 03/19/20 24 03/18/2024 MAMMO , scree home, digit al, bilat eral No observ ation record ed. [facility] [address] [place] [address], [address], 03/21/2024 07:49:52 Result Notes None recorded. Problems Name Problem SNOMED Code Status Onset Date Resolution Date Notes Provider Name and Address Organization Details Recorded Time Hypertensiv e disorder 61911977 Active 2016 Mesha jessica [place] - [facility], 7 13:43:50 Hirsutism 516795889 Active 2016 Vivian Mayer MD [address] [place] [address],[address], [place], [address], [place] - [facility], 7 14:37:05 Family history of breast cancer 333421307 Active 2016 Vivian Mayer MD [address] [place] [address],[address], [place], [address], [place] - [facility], 7 13:39:47 At high risk for malignant neoplasm of breast 3502578636723 02 Active 2017 27.2% T-C Vivian Mayer MD [address] [facility],[address], [place], [address], [place] - [facility], 0 11:16:32 Carpal tunnel syndrome 65747757 Active 2022 Es jessica [place] - [facility], 3 07:58:05 Problem Notes None recorded. Procedures Surgical History Date Name Laterality Status Provider Name and Address Organization Details Recorded Time 4 Colposcopy completed Vivian Mayer MD [address] [facility],[address], [place], [address], [place] - [facility], 07/03/2023 14:45:20 3 Most Recent Mammogram completed alba garber [place] - [facility], 05/22/2023 08:06:00 1 Colposcopy completed Vivian Mayer MD [address] [facility],[address], [place], [address], [place] - [facility], 08/04/2020 09:40:43 1 Colposcopy completed Vivian Mayer MD [address] [facility],[address], [place], [address], [place] - [facility], 05/04/2020 09:33:40 0 Colposcopy completed Vivian Mayer MD [address] [facility],[address], [place], [address], [place] - [facility], 01/28/2020 14:08:34 0 cervical polypectomy completed Vivian Mayer MD [address] [facility],[address], [place], [address], [place] - [facility], 04/22/2019 14:24:43 0 Colposcopy completed Vivian Mayer MD [address] [facility],[address], [place], [address], [place] - [facility], 04/22/2019 14:25:04 7 Endometrial Ablation completed Mesha Metzger [place] - [facility], 12/12/2016 13:55:21 Imaging Results Imaging Date Name Status [facility] Details LastModified Time 02/25/2022 MAMMO, screening, digital, bilateral completed Information not available 02/27/2022 18:50:04 02/24/2023 MRI, breast, bilateral, w/wo contrast completed [facility] [address] [place] [address] [place], [address], 03/03/2023 15:22:04 03/06/2023 MAMMO, screening, digital, bilateral [facility] [address], [address], 03/06/2023 10:31:03 03/18/2024 MAMMO, screening, digital, bilateral [facility] [address] [place], [address], 03/21/2024 07:49:52 Procedure Notes None recorded. Medical Equipment None Reported. Allergies No known drug allergies Medications Name Sig Start Date Stop Date Status Note LastModified by Organization Details LastModified Time methocarbam ol 500 mg tablet 12/24 completed Not Available Not Available Not Available acetaminoph en 325 mg tablet TAKE 2 TABLETS BY MOUTH EVERY 6 HOURS NEEDED FOR PAIN active Not Available Not Available No t Available azithromyci n 250 mg tablet 12/24 completed Not Available Not Available Not Available ibuprofen 800 mg tablet 12/19 completed Not Available Not Available Not Available amlodipine 2.5 mg tablet TAKE 1 TABLET BY MOUTH EVERY DAY active Not Available Not Available No t Available tacrolimus 0.03 % topical ointment 12/24 completed Not Available Not Available Not Available hydrochloro thiazide 25 mg tablet 12/19 completed Not Available Not Available Not Available ergocalcife rol (vitamin D2) 1,250 mcg (50,000 unit) capsule TAKE 1 CAPSULE BY MOUTH 1 TIME A WEEK active Not Available Not Available No t Available Cheratussin AC 10 mg-100 mg/5 mL oral liquid 12/24 completed Not Available Not Available Not Available ibuprofen 600 mg tablet TAKE 1 TABLET BY MOUTH EVERY 6 HOURS X14 DAYS, ALTERNATE EVERY 6 HRS WITH TYLENOL active Not Available Not Available No t Available albuterol sulfate HFA 90 mcg/actuati on aerosol inhaler active Not Available Not Available Not Available lisinopril 2.5 mg tablet 12/24 completed Not Available Not Available Not Available naproxen 500 mg tablet 04/08 completed Not Available Not Available Not Available spironolact one 50 mg tablet TAKE 1 TABLET BY MOUTH EVERY DAY active Not Available Not Available No t Available oxycodone 5 mg tablet TAKE 1 TABLET BY MOUTH EVERY 6 HOURS NEEDED FOR PAIN 02/12 completed Not Available Not Available Not Available neomycin-po lymyxin-hyd rocort 3.5 mg-10,000 unit/mL-1 % ear drops,susp PLACE 3 DROPS INTO THE RIGHT EAR FOUR TIMES DAILY FOR 10 DAY. TILT HEAD SO EAR TO BE TREATED POINTS TOWARDS THE CELING 12/31 completed Not Available Not Available Not Available nitrofurant oin monohydrate /macrocryst als 100 mg capsule 12/12 completed Not Available Not Available Not Available hydrochloro thiazide 12.5 mg tablet 12/12 completed Not Available Not Available Not Available Gavilyte-C 240 gram-22.72 gram-6.72 gram-5.84 gram oral solution 12/26 completed Not Available Not Available Not Available Shingrix (PF) 50 mcg/0.5 mL intramuscul ar suspension, kit active Not Available Not Available Not Available Fluarix Quad (PF) 60 mcg (15 mcg x 4)/0.5 mL IM syringe inject 0.5 millilite rs intramusc ularly active Not Available Not Available No t Available Vitals Date Recorded Body height Body mass index (BMI) Body weight Heart rate Systolic blood pressure Diastolic blood pressure Provider Name and Address Organization Details Last Updated DateTime 2 153.67 cm 35.7 kg/m2 14007.1 8 g 77 /min 139 mm[Hg] 64 mm[Hg] Es Pena in [facility], 2 09:01:30 Date Recorded Body weight Body mass index (BMI) Body height Heart rate Systolic blood pressure Diastolic blood pressure Provider Name and Address Organization Details Last Updated DateTime 3 99165.5 2 g 32.3 kg/m2 153.67 cm 70 /min 143 mm[Hg] 81 mm[Hg] Es Pena in [facility], 3 07:57:45 Date Recorded Body height Body mass index (BMI) Body weight Body temperature Heart rate Systolic blood pressure Diastolic blood pressure Provider Name and Address Organization Details Last Updated DateTime 4 153.67 cm 31.3 kg/m2 05755.8 4 g 97.1 [degF] 68 /min 135 mm[Hg] 76 mm[Hg] alba Pena in [facility], 4 08:02:37 Date Recorded Body height Body mass index (BMI) Body weight Body temperature Heart rate Systolic blood pressure Diastolic blood pressure Provider Name and Address Organization Details Last Updated DateTime 4 153.67 cm 31.3 kg/m2 57195.2 7 g 97.7 [degF] 84 /min 134 mm[Hg] 91 mm[Hg] alba Pena in [facility], 4 14:23:40 Date Recorded Body height Body mass index (BMI) Body weight Body temperature Heart rate Systolic blood pressure Diastolic blood pressure Provider Name and Address Organization Details Last Updated DateTime 4 152.4 cm 29.7 kg/m2 77327.0 4 g 97.4 [degF] 67 /min 152 mm[Hg] 66 mm[Hg] Mesha Pena in [facility], 4 08:04:11 Social History Question Answer Notes LastModified by Organizat ion Details LastModified Time Tobacco Smoking Status Never Smoker JERALD Gentile in [facility], 12/12/2016 13:49:29 What Is Your Level Of Alcohol Consumption? Occasional Information not available 12/12/2016 How Many Years Have You Consumed Alcohol? 39 Information not available 12/29/2020 What Is Your Level Of Caffeine Consumption? Occasional Information not available 12/12/2016 In The 14 Days Before Symptom Onset, Have You Had Close Contact With A Laboratory-confir med COVID-19 While That Case Was Ill? No Information not available 12/29/2020 In The 14 Days Before Symptom Onset, Have You Had Close Contact With A Person Who Is Under Investigation For COVID-19 While That Person Was Ill? No Information not available 12/29/2020 Have You Been To An Area Known To Be High Risk For COVID-19? No Information not available 12/29/2020 Are You Currently Employed? Yes Information not available 12/29/2020 What Type Of Diet Are You Following? REGULAR Information not available 12/12/2016 Which Illicit Or Recreational Drugs Have You Used? No Information not available 12/12/2016 Do You Reside In Or Have You Traveled To An Area Where Ebola Virus Transmission Is Active? No Information not available 12/12/2016 Do You Or Have You Ever Used E-cigarettes Or Vape? Never Used Electronic Cigarettes Information not available 12/24/2018 Education 2 Year College Information not available 12/12/2016 What Is The Highest Grade Or Level Of School You Have Completed Or The Highest Degree You Have Received? 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 0 Information no t available 12/12/2016 Are There Any Guns Present In Your Home? No Information not available 12/29/2020 High Number Of Sexual Partners No Information not available 12/12/2016 To Which Gender Do You Self-identify? Female Information not available 12/12/2016 Marital Status Seperated [email or web address] Informatio n not available 05/22/2023 What Was The Date Of Your Most Recent Tobacco Screening? 02/13/2024 Information not available 02/13/2024 What Is Your Relationship Status? Information not available 04/20/2021 Are You Sexually Active? No Information not available 12/19/2017 Do You Or Have You Ever Used Smokeless Tobacco? Never Used Smokeless Tobacco Information not available 12/24/2018 How Much Tobacco Do You Smoke? No Information not available 03/28/2017 General Stress Level Medium Information not available 12/27/2019 Do You Feel Stressed (tense, Restless, Nervous, Or Anxious, Or Unable To Sleep At Night)? [id number] Information not available 12/29/2020 Do You Use Any Illicit Or Recreational Drugs? No Information not available 12/29/2020 How Many Years Have You Smoked Tobacco? 0 Information not available 03/28/2017 Have You Recently (within The Last 12 Weeks, Or During A Current ) Traveled To Or Lived In A Zika-affected Area? No Information not available 12/12/2016 Do You Or Have You Ever Used Any Other Forms Of Tobacco Or Nicotine? No Information not available 12/29/2020 How Many Days In The Past Year Have You Consumed 4 Or More Drinks? 0 Information no t available 12/29/2020 Sex: Female Functional Status Question Answer Note LastModified by Organization D etails LastModified Time What is your exercise level? Moderate Information not available 12/24/2018 Mental Status None recorded. Family History Relationship Description Onset Age of this Age Resolved Age Notes LastModified by Organization Details LastModified Time Mother Malignant tumor of breast 79 81 [email or web address] Not available 2016 13:48:25 Mother Malignant neoplasm of uterus 45 stated they did partia l hyst and it came back and then did total hyster ectomy and it was fine.. . [email or web address] Not available 12/12/2016 13:47:35 Unspecified Relation Malignant tumor of breast 43 [email or web address] Not available 2016 13:01:20 Unspecified Relation Malignant tumor of breast 45 matern al cousin [email or web address] Not available 01/03/2017 13:02:09 Unspecified Relation Malignant tumor of breast 48 matern al cousin 48 [email or web address] Not available 01/03/2017 13:09:51 Unspecified Relation Malignant tumor of breast 64 Matern al Cousin Not available 02/08/2023 07:56:27 Father Heart disease 48 [email or web address] Not available 2016 13:48:08 Maternal Aunt Malignant tumor of breast 79 [email or web address] Not available 2016 13:01:46 Brother Problem end stage liver cancer and 2 spots on spine. Not available 12/27/2019 10:57:25 Brother Malignant neoplasm of liver 66 End stage Not available 12/27/2019 10:57:43 Medical History Condition Response Anesthesia complications N High Blood Pressure Y Candidate for MyRisk panel Y Autoimmune Condition N Kidney or Bladder Problems N Thyroid Problems N Depression N Lung Disease N GI Problems Y Defects or Inherited Disease N Anemia N History of Ovarian Cancer N History of Breast Cancer N JASPER exposure N BRCA testing in past N Osteopenia N Psychiatric Illness N Anxiety Disorder N Diabetes N Arthritis Y Headaches or Migraines Y Infertility N Asthma N History of Cancer N Endometriosis N Hepatitis N Heart Disease Y Hypertension Y Osteoporosis N Gynecological History Statement/Question Response If Post Menopausal, Age at Menopause 53 Age at Menarche 14 Most Recent Mammogram 03/06/2023 Age at First Child 31 Hormone Replacement Therapy N Obstetrics History GPAL:G 2 P 1 0 1 1 Type Value Full Term 1 Spontaneous 1 Living 1 Total 2 Immunizations Vaccine Type Date Status Note Provider Nam e and Address Organization Details Recorded Time Influenza, split virus, quadrivalent, preservative 9 completed JERALD Gentile in [facility], 12/24/2018 14:26:58 varicella 9 completed JERALD Gentile in [facility], 12/24/2018 14:27:31 Influenza, split virus, quadrivalent, preservative 1 completed JERALD Tomas in [facility], 05/04/2020 09:23:02 SARS-COV-2 (COVID-19) vaccine, UNSPECIFIED 1 completed JERALD Tomas in [facility], 08/04/2020 09:02:41 SARS-COV-2 (COVID-19) vaccine, UNSPECIFIED 1 completed JERALD Tomas in [facility], 08/04/2020 09:03:00 Influenza, split virus, quadrivalent, preservative 1 completed JERALD Tomas in [facility], 12/29/2020 09:00:41 Past Encounters Encounter ID Performer Location Encounter Start Date Encounter Closed Date Diagnosis/Indication Diagnosis SNOMED-CT Code Diagnosis ICD10 Code Diagnosis Note [id number] MD VIVIAN Julio MD [address] [facility], [address] [place] [address] 12/12/2016 13:24:24 12/12/2016 16:05:43 Specialized medical examination 32807200 Z01.419 Screening for malignant neoplasm of rectum 767309634 Z12.12 Screening mammography 24 065344 Z12.31 Hirsutism 238281373 L68. 0 Hypertensive disorder 38 015949 I10 [id number] MD VIVIAN Julio MD [address] [place] [address],[place] [address] 01/03/2017 12:53:02 01/03/2017 15:24:51 Family history of breast cancer 610434297 Z80.3 [id number] MD VIVIAN Julio MD [address] [place] [address] [place] [address] 03/28/2017 08:58:34 03/28/2017 11:41:49 Atypical squamous cells of undetermined significance on cervical Papanicolaou smear 869350919 R87.610 [id number] MD VIVIAN Julio MD [address] [place] [address] 04/04/2017 10:14:14 04/04/2017 12:57:45 At risk of breast cancer 464676017 Z91.89 [id number] MD VIVIAN Julio MD [address] [place] [address] 12/19/2017 09:33:11 12/19/2017 14:50:35 Specialized medical examination 39872199 Z01.419 Screening for malignant neoplasm of rectum 657598867 Z12.12 Screening mammography 24 881884 Z12.31 [place] malignant neoplasm of breast 1153942850 49504 Z91.89 [id number] MD VIVIAN Julio MD [address] [place] [address] [place] [address] 12/24/2018 14:19:27 12/24/2018 15:53:57 Specialized medical examination 75632021 Z01.419 Screening for malignant neoplasm of rectum 390541484 Z12.12 Screening mammography 24 062956 Z12.31 [id number] MD VIVIAN JulioAN MD [address] [place] [address] [place] [address] 04/08/2019 13:16:49 04/08/2019 14:25:55 Atypical squamous cells of undetermined significance on cervical Papanicolaou smear 942356710 R87.610 [id number] MD VIVIAN Julio MD [address] [place], [place] [address] [address] 04/22/2019 13:52:13 04/23/2019 08:45:57 Mucous polyp of cervix 05009038 N84.1 Atypical s quamous cells of undetermined significance on cervical Papanicolaou smear 991817658 R87.610 [id number] MD VIVIAN Julio MD [address] [place] [address] [place] [address] 08/05/2019 13:16:40 08/05/2019 14:58:28 Atypical squamous cells of undetermined significance on cervical Papanicolaou smear 489048796 R87.610 [id number] MD VIVIAN Julio MD [address] [place] [address] [place] [address] 12/27/2019 10:52:11 12/27/2019 12:00:41 Specialized medical examination 81536425 Z01.419 Screening for malignant neoplasm of rectum 831126955 Z12.12 Screening mammography 24 855520 Z12.31 At high [place] for malignant neoplasm of breast 0552060422 82961 Z91.89 [id number] MD VIVIAN Julio MD [address] [place] [address] [place] [address] 01/28/2020 13:42:37 01/28/2020 15:13:14 Cytologic finding 961560699 R87.612 [id number] MD VIVIAN Julio MD [address] [place] [address] [place] [address] 05/04/2020 09:17:35 05/04/2020 11:51:13 Cervicovaginal cytology: Low grade squamous intraepithelial lesion 206964384 R87.612 [id number] Vivian MD VIVIAN Mayer MD [address] [place] [address], [place] [address] 08/04/2020 08:59:13 08/04/2020 10:13:39 Cervicovaginal cytology: Low grade squamous intraepithelial lesion 642083822 R87.612 [id number] MD VIVIAN Julio MD [address] [place] [address] [place] [address] 12/29/2020 08:53:22 12/29/2020 10:29:36 Specialized medical examination 54343350 Z01.419 Screening for malignant neoplasm of rectum 979865983 Z12.12 Screening mammography 24 948314 Z12.31 [id number] MD VIVIAN Julio MD [address] [place] [address] [place] [address] 04/20/2021 10:16:44 04/20/2021 15:40:54 Atypical squamous cells of undetermined significance on vaginal Papanicolaou smear 928124321 R87.620 [id number] MD VIVIAN Julio MD [address] [place] [address] [place] [address] 12/31/2021 08:54:52 12/31/2021 10:01:06 Specialized medical examination 52721413 Z01.419 Screening for malignant neoplasm of rectum 265756470 Z12.12 Screening mammography 24 429276 Z12.31 At increas ed risk of malignant neoplasm of breast 783389902 Z91.89 Fatigue 70279242 R53.83 Amenorrhea 94207169 N91. 2 [id number] MD VIVIAN Julio MD [address] [place] [address],[facility] [place] [address] 02/08/2023 07:51:23 02/08/2023 10:21:25 Specialized medical examination 35535898 Z01.419 Screening for malignant neoplasm of rectum 511040912 Z12.12 Screening mammography 24 706393 Z12.31 At increas ed risk of malignant neoplasm of breast 620080041 Z91.89 [id number] MD VIVIAN Julio MD [address] [place] [address], [place] [address] 05/22/2023 07:59:24 05/22/2023 14:24:25 Atypical squamous cells of undetermined significance on cervical Papanicolaou smear 381045982 R87.610 [id number] MD VIVIAN Julio MD [address] [facility],[place] [address] 07/03/2023 14:17:47 07/03/2023 15:06:06 Cytologic finding 759521137 R87.612 [id number] MD VIVIAN Julio MD [address] [facility] [place] [address] 02/13/2024 07:56:29 02/13/2024 11:28:05 Specialized medical examination 57997826 Z01.419 Screening for malignant neoplasm of rectum 721585125 Z12.12 Screening mammography 24 185999 Z12.31 At high [place] for malignant neoplasm of breast 6094137154 26306 Z91.89 Family his tory of breast cancer 172170969 Z80.3 Health Concerns Section Related Observation LastModified by Organization Detai ls LastModified Time None Recorded Concern Status LastModified by Organization Details LastModified Time None Recorded Advance Directives Directive None Recorded Payers Encounter Date Sequence Insurance Name Policy Number Policy Ornelas Covered Member ID Ornelas Member ID Guarantor Name 12/31/2021 1 [place] [id number] Jerald Reall [id number] [facility] Re[facility] 02/08/2023 1 [place] [id number] Jerald Reall [id number] [facility] Reall 05/22/2023 1 [place] [id number] Jerald Reall [id number] [facility] Reall 07/03/2023 1 [place] [id number] Jerald Reall [id number] [facility] Real Notes Date Note Type Note Provider Name and Address Organization Details Recorded Time 12/31/2021 text/html She is here for annual exam, notes recent increase in anxiety nad hot flashes, would like testing to see if menopause related. She has not had a menses in at least 6 years, she had an endometrial ablation in 2006 as well. Mairah has a strong family history of early age onset breast cancer on her mother's side, she is BRCA negative, is getting annual MRI and mammo, wishes referral to a high risk program. Her T-K is 27.2%. Note from 2020: She is here for annual exam, doing well, no significant vasomotor symptoms. She has a Tyrer-Cuz[place] of 27.2%, gets annual mammogram and also annual bilateral breast MRI. She is MyRisk negative. Vivian Mayer MD [address], [place], [address], [place] [facility], 12/31/2021 09:30:38 02/08/2023 text/html She is here for annual, doing well, no significant vasomotor symptoms. Is due for MRI of breast for screening, has a Tyrer-Cuz[place] of 27.2%, and a strong family history. Is BRCA neg. Has a bone density already ordered by PCP. __ Note from 2021: She is here for annual exam, notes recent increase in anxiety nad hot flashes, would like testing to see if menopause related. She has not had a menses in at least 6 years, she had an endometrial ablation in 2006 as well.Mariah has a strong family history of early age onset breast cancer on her mother's side, she is BRCA negative, is getting annual MRI and mammo, wishes referral to a high risk program. Her T-K is 27.2%. Vivian Mayer MD [address], [place], [address], [place] - [facility], 02/08/2023 08:18:13 05/22/2023 text/html She is here for repeat pap after pap with ASCUS with negative HR HPV. Vivian Mayer MD [address], [place], [address], [place] [facility], 05/22/2023 09:55:01 07/03/2023 text/html She is her for colpo for 2 consecutive paps with ASCUS negative HR HPV. She had biopsy proven LSIL in 2020. Vivian Mayer MD [address] [facility],[address], [place], [address], [place] - [facility], 07/03/2023 14:46:01 02/13/2024 text/html She is here for annual, doing well, no vasomotor symptoms. Will put off her MRI of breasts until after her new insurance starts in March, she will call us for the order, her T-K is 27.2%. Note from 2022: she is here for annual, doing well, no significant vasomotor symptoms. Is due for MRI of breast for screening, has a Tyrer-Cuz[place] of 27.2%, and a strong family history. Is BRCA neg.Has a bone density already ordered by PCP. Vivian Mayer MD [address], [place], [address], [place] - [facility], 02/13/2024 08:20:51 OBGyn Episode No OBEpisode recorded.
== END 2024-07-23 14:42 | disposition home or self-care (01) ==
LOC: HO.HSMS 14:15
PROVIDERS: PCP Internal Medicine; Visit Provider Nurse Practitioner Family
DX: G56.03 Carpal tunnel syndrome, bilateral upper limbs (principal)
CPT/HCPCS: 99213